=== PATIENT | male | born 1965 | race Two or more races ===

== ENCOUNTER 2025-08-17 10:57 | Outpatient (RCR) | payer MEDICAID, SELFPAY ==
--- NOTE | 2025-08-17 11:34 | PTNOTE_ITS ---
PT OP Initial Eval Patient Information Outpatient Physical Therapy Treatment Date: 08/17/25 Visit Reasons: pain in left knee Medical Diagnosis: M17.12 M25.562 Treatment Dx #1: L knee pain Start of Care: 08/17/25 Date of Onset: 6 months ago Smoking Status Smoking Status: Never smoker Initial Assessment Subjective: Pt is 60 yr old aust[place]ian speaking male who reports L knee pain that runs up toward the hip on the inner thigh. This pain limits walking tolerance to about 2 miles and stairs and working duties. PMH: gastritis Imaging: Xray report in chart Pt goal: to get rid of the L knee pain and thigh pain Objective: L knee AROM: ? Flexion: full ? Extension: full ? Lex's: negative Valgus stress: positive gapping <5mm Patella compression: positive ? SLR: 55 deg with slight extensor lag ? Strength: L quads 3+/5 limited by patella compression pain, hamstrings 4-/5 TTP: moderate of medial joint line Assessment: Pt presentation consistent with Xray that reveals OA. Pt requires skilled therapy and has fair rehab potential to meet goals. Short Term and [employer] Goals 1. Ind with HEP 2. Improved L quad strength to 4/5 3. Squat x10 with <=3/10 L knee pain 4. Ascend/descend 1 flight of stairs with reciprocal pattern Treatment Plan 1. Manual therapy ? 2. Therex ? 3. Modalities as indicated, moist heat, ice, TENS Frequency and Duration: 2x a week for 6 visits plus the evaluation Certification Dates: 08/17/25 to 11/15/25 Procedure Charges OP PT Eval Mod Complex 30 minutes: Yes
== END 2025-08-25 23:59 | disposition home or self-care (01) ==
LOC: CPTX 10:57
PROVIDERS: PCP Physician Assistant; Referring Provider Physician Assistant; Visit Provider Physician Assistant
DX: M25.562 Pain in left knee (principal); R26.2 Difficulty in walking, not elsewhere classified; M17.12 Unilateral primary osteoarthritis, left knee
CPT/HCPCS: 97162